=== PATIENT | female | born 1980 ===

== ENCOUNTER 2017-06-27 15:53 | Emergency (ER) | payer OTHER ==
[2017-06-27 16:00] VITALS: TEMP 98
[2017-06-27 16:47] LABS: BASO # 0.1 K/uL (0.0-0.2); BASO % 0.9 % (0.0-2.0); EOS % 0.4 % (0.0-4.0); HEMOGLOBIN 14.1 g/dL (12.0-16.0); LYMPH # 2.5 K/uL (1.0-4.3); LYMPH % 28.6 % (20.0-40.0); MEAN CELL VOLUME 93.3 fl (81.0-99.0); MEAN CORPUSCULAR HEMOGLOBIN 30.6 pg (27.0-31.0); MEAN CORPUSCULAR HGB CONC 32.8 g/dL (33.0-37.0); MEAN PLATELET VOLUME 9.1 fl (7.2-11.7); MONO # 0.7 K/uL (0.0-0.8); MONO % 8.5 % (0.0-10.0); NEUT # 5.4 K/uL (1.8-7.0); NEUT % 61.6 % (50.0-75.0); RBC 4.6 Mil/uL (3.80-5.20); RED CELL DISTRIBUTION WIDTH 13.4 % (11.5-14.5); WHITE BLOOD COUNT 8.8 K/uL (4.8-10.8)
--- NOTE | 2017-06-27 16:47 | ED PDOC ---
HPI: Altered Mental Status Time Seen by Provider: 06/27/17 15:59 Chief Complaint (Nursing): Altered Mental Status Chief Complaint (Provider): Altered Mental Status History Per: Patient, EMS History/Exam Limitations: None Onset/Duration Of Symptoms: Hrs (today) Description Of Symptoms: Confused Usual Baseline: Unknown Exacerbating Factor(s): Unknown Associated Symptoms: Confused, Other (mild abdominal pain) Additional Complaint(s): Jana Brizuela is a 36 year old female, with a past medical history of schizophrenia, heroin and cocaine use, who was brought to the emergency department via EMS after she was found wandering around without her coat and shoes. Patient states that she knows what's going to happen right now because she has a history of schizophrenia. Patient admits to use of cannabis, and adderall. She denies heroin or cocaine use. She is currently complaining of a mild abdominal pain, and states she is 20 weeks and "due today." She denies any other medical complaints. PMD: None provided. Past Medical History Reviewed: Historical Data, Vital Signs Vital Signs: Last Vital Signs Temp 98.0 F 06/27/17 15:56 Pulse 122 H 06/27/17 15:56 Resp 18 06/27/17 15:56 BP 137/107 H 06/27/17 15:56 Pulse Ox 99 06/27/17 15:56 - Medical History PMH: Anxiety, Depression, Schizophrenia - Surgical History Surgical History: No Surg Hx - Family History Family History: States: Unknown Family Hx - Social History Drugs: Cannabis, Prescription medications (adderall) - Allergies Allergies/Adverse Reactions: Allergies Allergy/AdvReac Type Severity Reaction Status Date / Time No Known Allergies Allergy Verified 06/01/15 14:16 Review of Systems ROS Statement: Except As Marked, All Systems Reviewed And Found Negative Gastrointestinal: Positive for: Abdominal Pain (mild) Neurological: Positive for: Altered Mental Status Physical Exam - Reviewed Nursing Documentation Reviewed: Yes Vital Signs Reviewed: Yes - Physical Exam Appears: Positive for: Non-toxic. Negative for: Well (agitated, flight of ideas , paranoid) Head Exam: Positive for: ATRAUMATIC, NORMAL INSPECTION, NORMOCEPHALIC Skin: Positive for: Normal Color, Warm, Dry Eye Exam: Positive for: Normal appearance, EOMI, PERRL Neck: Positive for: Painless ROM, Supple Cardiovascular/Chest: Positive for: Regular Rate, Rhythm. Negative for: Murmur Respiratory: Positive for: Normal Breath Sounds. Negative for: Respiratory Distress Gastrointestinal/Abdominal: Positive for: Normal Exam, Soft, Other (No palpable ). Negative for: Tenderness, Guarding, Rebound Back: Positive for: Normal Inspection. Negative for: L CVA Tenderness, R CVA Tenderness, Vertebral Tenderness Extremity: Positive for: Normal ROM. Negative for: Pedal Edema, Deformity, Swelling Neurologic/Psych: Positive for: Alert - Laboratory Results Result Diagrams: 06/27/17 16:29 - ECG ECG Rhythm: Positive for: Sinus Rhythm (Tachy) Rate: 106 O2 Sat by Pulse Oximetry: 99 (RA) Pulse Ox Interpretation: Normal Medical Decision Making Medical Decision Making: Initial Impression: psychosis and drug use Initial Plan: --EKG --Acetaminophen --Alcohol serum --Beta-HCG, Quantitative --CMP --Drug screen, urine --Salicylate --Urine --CBC w/ differential --Chest one view [RAD] --1:1 Observation --Urinalysis --reevaluation Patient is stable after Ativan. She is currently not as suspected. She is comfortable and waiting Psychiatric disposition. She is medically cleared for psych evaluation. 7pm: Patient signed out to Dr. Jacques to f/u [facility], reevaluate and disposition. Scribe Attestation: Documented by Tone Rodas, acting as a scribe for Regis Devi MD Provider Scribe Attestation: All medical record entries made by the Scribe were at my direction and personally dictated by me. I have reviewed the chart and agree that the record accurately reflects my personal performance of the history, physical exam, medical decision making, and the department course for this patient. I have also personally directed, reviewed, and agree with the discharge instructions and disposition. Disposition - Clinical Impression Clinical Impression: Psychiatric care - Disposition Disposition Time: 19:05 Condition: FAIR Forms: [employer] (Greenlandic)
[2017-06-27 17:28] LABS: SQUAMOUS EPITHIAL 4 /hpf (0-5); URINE BACTERIA RARE (<OCC); URINE BILIRUBIN SMALL (NEGATIVE); URINE BLOOD NEGATIVE (NEGATIVE); URINE CLARITY CLOUDY (Clear); URINE COLOR AMBER (YELLOW); URINE GLUCOSE (UA) NEG (Normal); URINE LEUKOCYTE ESTERASE NEG Leu/uL (Negative); URINE NITRATE NEGATIVE (NEGATIVE); URINE PROTEIN 100 mg/dL (NEGATIVE)
[2017-06-27 17:53] LABS: SALICYLATE < 1.0 mg/dL 1
[2017-06-27 17:54] LABS: ACETAMINOPHEN < 10.0 ug/ml (10.0-30.0)
[2017-06-27 18:28] VITALS: BP 128/80; RESP 20
[2017-06-27 18:50] VITALS: O2SAT 99
[2017-06-27 18:51] VITALS: PULSE 106
[2017-06-27 19:09] LABS: BARBITURATES, UR NEGATIVE (NEGATIVE); BENZODIAZEPINES, UR NEGATIVE (NEGATIVE); OPIATES, UR NEGATIVE (NEGATIVE); PHENCYCLIDINE, UR NEGATIVE (NEGATIVE)
--- NOTE | 2017-06-27 20:08 | ED PDOC ---
- Laboratory Results Result Diagrams: 06/27/17 16:29 - ECG O2 Sat by Pulse Oximetry: 99 (RA) Pulse Ox Interpretation: Normal Medical Decision Making Medical Decision MakinPM Patient was signed out to me by Dr. Devi pending crisis eval. Labs reviewed , all in normal limits. Patient stable, calm, cooperative. 8PM Patient evaluated by crisis and cleared for discharge. Patient will followup as outpatient, given dx of anxiety by Dr. Clay. Disposition - Clinical Impression Clinical Impression: Anxiety - POA Present On Arrival: None - Disposition Referrals: [facility] [Outside] Disposition: Routine/Home Disposition Time: 20:08 Condition: FAIR Instructions: Anxiety (ED) Forms: [employer] (Latvian)
--- NOTE | 2017-06-28 11:21 | CARD ---
APPROVED REPORT EKG Measurement Heart [id number] <Conclusion> Sinus tachycardia Otherwise normal ECG
--- NOTE | 2017-06-28 11:26 | RAD ---
PROCEDURE: CHEST RADIOGRAPH, 1 VIEW HISTORY: psych COMPARISON: None available. FINDINGS: LUNGS: Clear. PLEURA: No pneumothorax or pleural fluid seen. CARDIOVASCULAR: Normal. OSSEOUS STRUCTURES: No significant abnormalities. VISUALIZED UPPER ABDOMEN: Normal. OTHER FINDINGS: None. IMPRESSION: No active disease.
== END 2017-06-27 21:00 | disposition home or self-care (01) ==
LOC: H.ER 15:53
DX: R41.82 Altered mental status, unspecified (principal); F20.9 Schizophrenia, unspecified; F32.9 Major depressive disorder, single episode, unspecified; F41.9 Anxiety disorder, unspecified; F12.10 Cannabis abuse, uncomplicated
CPT/HCPCS: 71045; 80324; 80329; 80345; 80346; 80349; 80353; 80358; 80361; 81003; 81025; 82948; 83992; 84702; 85025; 93005; 96372; 99285; J2060

== ENCOUNTER 2017-06-29 15:15 | Inpatient (IN) | payer OTHER ==
--- NOTE | 2017-06-29 16:37 | ED PDOC ---
HPI: Psych/Substance Abuse Time Seen by Provider: 06/29/17 15:27 Chief Complaint (Nursing): Altered Mental Status Chief Complaint (Provider): Psychiatric evaluation History Per: Patient, Family (Daughter) History/Exam Limitations: no limitations Current Symptoms Are (Timing): Still Present Additional Complaint(s): 36 year old female presents to the emergency department accompanied by ex- and daughter. As per daughter, patient has been acting bizarre over the past 4 days. Daughter found patient dancing in her bedroom naked and screaming at the top of her lungs. States patient has been claiming to be her relative and saying her sugar is low. Denies weakness or loss of consciousness. Patient was seen in this facility 2 days ago with similar complaints and was claiming to be 37 weeks although test was negative. Patient was evaluated by crisis and cleared for discharge. Offers no further complaints at this times, no suicidal or homicidal ideation, and no auditory or visual hallucinations. Of note, patient is asking provider if he believes in god or not. PMD: Dr. Osman Osorio MD Past Medical History Reviewed: Historical Data, Nursing Documentation, Vital Signs Vital Signs: Last Vital Signs Temp 98.0 F 06/29/17 15:20 Pulse 115 H 06/29/17 15:20 Resp 20 06/29/17 15:20 BP 156/92 H 06/29/17 15:20 Pulse Ox 99 06/29/17 15:20 - Medical History PMH: Anxiety, Depression, Schizophrenia - Family History Family History: States: No Known Family Hx - Allergies Allergies/Adverse Reactions: Allergies Allergy/AdvReac Type Severity Reaction Status Date / Time No Known Allergies Allergy Verified 06/01/15 14:16 Review of Systems ROS Statement: Except As Marked, All Systems Reviewed And Found Negative (As per HPI, otherwise negative) Neurological: Negative for: Weakness (loss of consciousness. ) Psych: Negative for: Suicidal ideation (homicidal ideation), Other (Auditory or visual hallucinations) Physical Exam - Reviewed Nursing Documentation Reviewed: Yes Vital Signs Reviewed: Yes - Physical Exam Appears: Positive for: No Acute Distress Head Exam: Positive for: NORMAL INSPECTION Skin: Positive for: Normal Color, Warm, Dry ENT: Positive for: Normal ENT Inspection. Negative for: Pharyngeal Erythema Cardiovascular/Chest: Positive for: Regular Rate, Rhythm. Negative for: Murmur Respiratory: Positive for: Normal Breath Sounds. Negative for: Accessory Muscle Use, Respiratory Distress Gastrointestinal/Abdominal: Positive for: Normal Exam, Soft. Negative for: Tenderness Back: Positive for: Normal Inspection. Negative for: L CVA Tenderness, R CVA Tenderness Extremity: Positive for: Normal ROM. Negative for: Pedal Edema Neurologic/Psych: Positive for: Alert, Oriented (x3), Mood/Affect (hyperverbal but cooperative ) - Laboratory Results Result Diagrams: 06/29/17 18:19 06/29/17 18:19 - ECG ECG: Positive for: Interpreted By Me ECG Rhythm: Positive for: Sinus Rhythm. Negative for: ST/T Changes Rate: 89 O2 Sat by Pulse Oximetry: 99 (RA) Pulse Ox Interpretation: Normal Medical Decision Making Medical Decision Making: Time: 1625 Initial impression: Psychiatric Evaluation Initial plan: --Alcohol Serum --CMP --Drug Screen, urine --Urine Preg --CBC w/ diff --Urinalysis --Crisis Evaluation as ordered --Head CT --Reevaluation Time: 1709 --Positive: Cannabinoids and Amphetamines Time: 1717 --Pt. refusing blood work, CT, and is becoming increasingly combative --Ativan 2 mg IM --Haldol 5 mg IM Time: 1846 --Head CT FINDINGS: Brain: Approximately 14 x 5 x 4 mm moderately high attenuation structure in the left side of the sella and left cavernous sinus (series 8, images 13-14) with no appreciable associated mass effect. No acute intracranial hemorrhage. No abnormal extra-axial fluid collection. No herniation. Patent basal cisterns. Preserved moran-white matter differentiation. No evidence of acute ischemia. Ventricles: No ventriculomegaly. Bones/joints: 2 x 0.6 x 1.7 cm non-expansile lesion in the intradiploic space of the right occipital bone with ground glass matrix (series 7, image 31). Soft tissues: No acute findings. Sinuses: The imaged paranasal sinuses are clear. Mastoid air cells: The mastoid air cells are clear. Orbits: No evident acute abnormality of the intraorbital contents. IMPRESSION: 1. 14 x 5 x 4 mm moderately high attenuation structure in the left side of the sella and left cavernous sinus with no appreciable associated mass effect. Differential diagnosis includes but is not limited to a meningioma, aneurysm, and pituitary neoplasm. This is of no appreciable acute clinical significance. Further evaluation could be obtained with MRI as clinically warranted. 2. No other evident intracranial abnormality. 3. 2 cm lesion in the right occipital bone as described above. Differential diagnosis favors a benign entity (e.g., fibrous dysplasia). Time: 1932 --Pt. and family informed of results. Patient agrees with plan to stay in hospital. She is much more calm and cooperative. --Case d/w Dr. Gold who recommends medical admission for further evaluation of brain lesions. --Case discussed with Dr. Devon RAMIREZ and put on observation. --Request made for Dr. Guo for routine neurology consult. --rn call center psychiatrist ordered. Time: 1933 --Admit to hospital routine: Observation in telemetry for altered mental status and sella turcica lesion under the care of Dr. Osman Osorio MD Scribe Attestation: Documented by Sheri Oh, acting as a scribe for Jose Robles PA-C Provider Scribe Attestation: All medical record entries made by the Scribe were at my direction and personally dictated by me. I have reviewed the chart and agree that the record accurately reflects my personal performance of the history, physical exam, medical decision making, and the department course for this patient. I have also personally directed, reviewed, and agree with the discharge instructions and disposition. Disposition - Clinical Impression Clinical Impression: Altered mental status, Brain lesion - Patient ED Disposition Is Patient to be Admitted: Yes (Observation in Telemetry under the care of Dr. Devon RAMIREZ) - Disposition Disposition: Routine/Home Disposition Time: 19:34 Condition: STABLE
[2017-06-29 17:39] LABS: BARBITURATES, UR NEGATIVE (NEGATIVE); BENZODIAZEPINES, UR NEGATIVE (NEGATIVE); OPIATES, UR NEGATIVE (NEGATIVE); PHENCYCLIDINE, UR NEGATIVE (NEGATIVE)
[2017-06-29 18:37] LABS: BASO % 0.3 % (0.0-2.0); EOS # 0.1 K/uL (0.0-0.7); EOS % 0.5 % (0.0-4.0); HEMOGLOBIN 12.7 g/dL (12.0-16.0); LYMPH # 3.2 K/uL (1.0-4.3); LYMPH % 33.4 % (20.0-40.0); MEAN CELL VOLUME 91.8 fl (81.0-99.0); MEAN CORPUSCULAR HEMOGLOBIN 30.6 pg (27.0-31.0); MEAN CORPUSCULAR HGB CONC 33.4 g/dL (33.0-37.0); MEAN PLATELET VOLUME 9.5 fl (7.2-11.7); MONO # 0.8 K/uL (0.0-0.8); MONO % 8.2 % (0.0-10.0); NEUT # 5.5 K/uL (1.8-7.0); NEUT % 57.6 % (50.0-75.0); RBC 4.15 Mil/uL (3.80-5.20); RED CELL DISTRIBUTION WIDTH 13.2 % (11.5-14.5); WHITE BLOOD COUNT 9.6 K/uL (4.8-10.8)
[2017-06-29 19:00] LABS: ALB/GLOB RATIO 1.3 (1.0-2.1); ALBUMIN 4.1 g/dL (3.5-5.0); ALT/SGPT 29 U/L (9-52); AST/SGOT 28 U/L (14-36); BLOOD UREA NITROGEN 7 mg/dl (7-17); CALCIUM 9.6 mg/dL (8.4-10.2); GFR AFRICAN-AMERICAN > 60; GFR NON-AFRICAN AMERICAN > 60
--- NOTE | 2017-06-29 23:59 | CP.PCM.HP ---
History of Present Illness - History of Present Illness History of Present Illness: This is a 36 y/o female admitted for increasing bizzarre behavior noticed by family ( daughter). She was noted bu daughter to be screaming in the bedroom and dancing naked. She was recently brought to ER as she was claiming that she was full term . She also had references to [place]/ belief in God. She had never had any occurrence of this bizarre behavior in the past. She denies any headaches or dizziness. She takes meds for ADHD, Initial exam showed 1.2 cm left cellar mass? and right occipital changes 2.0 cm Noted to be positive for cannabinoids Present on Admission - Present on Admission Any Indicators Present on Admission: No History of DVT/PE: No History of Uncontrolled Diabetes: No Urinary Catheter: No Decubitus Ulcer Present: No Review of Systems - Psychiatric Psychiatric: Behavioral Changes, Confusion Past Patient History - Past Social History Smoking Status: Heavy Smoker > 10 Cigarettes Daily - PSYCHIATRIC Hx Anxiety: Yes Hx Depression: Yes Hx Schizophrenia: Yes - SURGICAL HISTORY Hx Tubal Ligation: Yes - ANESTHESIA Hx Anesthesia: Yes Meds Allergies/Adverse Reactions: Allergies Allergy/AdvReac Type Severity Reaction Status Date / Time No Known Allergies Allergy Verified 06/01/15 14:16 Physical Exam - Head Exam Head Exam: NORMAL INSPECTION - Eye Exam Eye Exam: Normal appearance - ENT Exam ENT Exam: Mucous Membranes Moist - Respiratory Exam Respiratory Exam: Clear to Auscultation Bilateral - Cardiovascular Exam Cardiovascular Exam: REGULAR RHYTHM - GI/Abdominal Exam GI & Abdominal Exam: Normal Bowel Sounds - Neurological Exam Neurological exam: CN II-XII Intact, Oriented x3 - Psychiatric Exam Additional comments: recent episode of bizarre behavior but on exams she has no abnormal behavior. Results - Vital Signs Recent Vital Signs: Last Vital Signs Temp 98.4 F 06/29/17 22:30 Pulse 89 06/29/17 23:26 Resp 15 06/29/17 22:30 BP 113/75 06/29/17 22:30 Pulse Ox 99 06/29/17 23:26 - Labs Result Diagrams: 07/01/17 05:55 07/02/17 04:20 Labs: Laboratory Results - last 24 hr 06/29/17 06/29/17 06/29/17 16:57 17:10 18:19 WBC RBC Hgb Hct MCV MCH MCHC RDW Plt Count MPV Neut % (Auto) Lymph % (Auto) [place] % (Auto) Eos % (Auto) Baso % (Auto) Neut # (Auto) Lymph # (Auto) [place] # (Auto) Eos # (Auto) Baso # (Auto) Sodium 142 Potassium 3.4 L Chloride 105 Carbon Dioxide 24 Anion Gap 16 BUN 7 Creatinine 0.6 L Est GFR ( Amer) > 60 Est GFR (Non-Af Amer) > 60 POC Glucose (mg/dL) 75 Random Glucose 89 Calcium 9.6 Total Bilirubin 0.4 AST 28 ALT 29 Alkaline Phosphatase 87 Total Protein 7.2 Albumin 4.1 Globulin 3.1 Albumin/Globulin Ratio 1.3 Urine Opiates Screen Negative Urine Methadone Screen Negative Ur Barbiturates Screen Negative Ur Phencyclidine Scrn Negative Ur Amphetamines Screen Positive H U Benzodiazepines Scrn Negative U Oth Cocaine Metabols Negative U Cannabinoids Screen Positive H Alcohol, Quantitative < 10 06/29/17 18:19 WBC 9.6 RBC 4.15 Hgb 12.7 Hct 38.1 MCV 91.8 MCH 30.6 MCHC 33.4 RDW 13.2 Plt Count 208 MPV 9.5 Neut % (Auto) 57.6 Lymph % (Auto) 33.4 [place] % (Auto) 8.2 Eos % (Auto) 0.5 Baso % (Auto) 0.3 Neut # (Auto) 5.5 Lymph # (Auto) 3.2 [place] # (Auto) 0.8 Eos # (Auto) 0.1 Baso # (Auto) 0.0 Sodium Potassium Chloride Carbon Dioxide Anion Gap BUN Creatinine Est GFR ( Amer) Est GFR (Non-Af Amer) POC Glucose (mg/dL) Random Glucose Calcium Total Bilirubin AST ALT Alkaline Phosphatase Total Protein Albumin Globulin Albumin/Globulin Ratio Urine Opiates Screen Urine Methadone Screen Ur Barbiturates Screen Ur Phencyclidine Scrn Ur Amphetamines Screen U Benzodiazepines Scrn U Oth Cocaine Metabols U Cannabinoids Screen Alcohol, Quantitative Assessment & Plan (1) Acute psychosis Status: Acute (2) Brain lesion Status: Acute (3) Attention deficit disorder (ADD) Status: Acute (4) Anxiety Status: Acute - Assessment and Plan (Free Text) Plan: get MRI of the brain Neuro eval Psych eval cont meds ativan for anxiety
--- NOTE | 2017-06-30 08:34 | CT ---
PROCEDURE: CT HEAD WITHOUT CONTRAST. HISTORY: AMS COMPARISON: None available. TECHNIQUE: Axial computed tomography images were obtained through the head/brain without intravenous contrast. Radiation dose: Total exam DLP = 2448.5 mGy-cm. This CT exam was performed using one or more of the following dose reduction techniques: Automated exposure control, adjustment of the mA and/or kV according to patient size, and/or use of iterative reconstruction technique. FINDINGS: HEMORRHAGE: No intracranial hemorrhage. BRAIN: 1.4 x 0.5 x 0.4 cm high attenuation structure in the left sella region. No edema. No atrophy or chronic microvascular ischemic changes. VENTRICLES: Unremarkable. No hydrocephalus. CALVARIUM: 2.6 x 0.6 x 1.7 cm non expansile structure within the diploic space of the right occipital bone with ground-glass matrix (series 7, image 31). PARANASAL SINUSES: Unremarkable as visualized. No significant inflammatory changes. MASTOID AIR CELLS: Unremarkable as visualized. No inflammatory changes. OTHER FINDINGS: None. IMPRESSION: Nonspecific 1.4 cm structure in the left sella region. Contrast-enhanced MRI can be obtained for further evaluation as clinically warranted. Nonspecific right occipital calvarial 2.0 centimeter ground-glass structure, possibly representing a focus of fibrous dysplasia.
--- NOTE | 2017-06-30 08:46 | RAD ---
HISTORY: clearance COMPARISON: Chest radiograph dated 06/27/2017. FINDINGS: LUNGS: No active pulmonary disease. PLEURA: No significant pleural effusion identified, no pneumothorax apparent. CARDIOVASCULAR: Normal. OSSEOUS STRUCTURES: No significant abnormalities. VISUALIZED UPPER ABDOMEN: Normal. OTHER FINDINGS: None. IMPRESSION: No active disease.
[2017-06-30 10:13] LABS: URINE BILIRUBIN NEGATIVE (NEGATIVE); URINE BLOOD SMALL (NEGATIVE); URINE CLARITY CLEAR (Clear); URINE COLOR YELLOW (YELLOW); URINE GLUCOSE (UA) NEG (Normal); URINE LEUKOCYTE ESTERASE NEG Leu/uL (Negative); URINE NITRATE NEGATIVE (NEGATIVE); URINE PROTEIN NEGATIVE (NEGATIVE); URINE UROBILINOGEN 0.2-1.0 mg/dL (0.2-1.0)
[2017-06-30 10:16] LABS: URINE BACTERIA FEW (<OCC)
--- NOTE | 2017-06-30 11:16 | CARD ---
APPROVED REPORT EKG Measurement Heart [id number] <Conclusion> Normal sinus rhythm Normal ECG
--- NOTE | 2017-06-30 13:22 | CP.PCM.CON ---
History of Present Illness - History of Present Illness History of Present Illness: This is a 36 yr old female with no known past psychiatric history admitted because of change in mental status as family brought pt because of bizarre behaviors for past 4 days,dancing naked in her room and screaming and claiming to be a relative .pt was brought in to ER 2 days ago claimimg to be but test was negative and was d/c home.pt has had cT scan done showing a brain mass which could be meningioma as per attending physician report and pt is admitted to medicine for further neurological evaluation. 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 illness and pt believes it is the brain mass causing the symptoms and pt denies any hallucinations,does not talk about being and understands she was having psychotic symptoms and has good insight about it Past Patient History - Past Medical History & Family History Past Medical History?: Yes - Past Social History Smoking Status: Heavy Smoker > 10 Cigarettes Daily - CARDIAC Hx Cardiac Disorders: No - PULMONARY Hx Respiratory Disorders: No - NEUROLOGICAL Hx Neurological Disorder: No - HEENT Hx HEENT Problems: No - RENAL Hx Chronic Kidney Disease: No - ENDOCRINE/METABOLIC Hx Endocrine Disorders: No - HEMATOLOGICAL/ONCOLOGICAL Hx Blood Disorders: No Hx AIDS: No Hx Human Immunodeficiency Virus (HIV): No - INTEGUMENTARY Hx Dermatological Problems: No - MUSCULOSKELETAL/RHEUMATOLOGICAL Hx Musculoskeletal Disorders: No Hx Falls: No - GASTROINTESTINAL Hx Gastrointestinal Disorders: No - GENITOURINARY/GYNECOLOGICAL Hx Genitourinary Disorders: No - PSYCHIATRIC Hx Anxiety: Yes Hx Depression: Yes Hx Schizophrenia: Yes - SURGICAL HISTORY Hx Tubal Ligation: Yes - ANESTHESIA Hx Anesthesia: Yes Meds Allergies/Adverse Reactions: Allergies Allergy/AdvReac Type Severity Reaction Status Date / Time No Known Allergies Allergy Verified 06/01/15 14:16 - Medications Medications: Current Medications Nicotine (Nicoderm Cq) 1 patch TD DAILY HORACIO Last Admin: 06/30/17 11:11 Dose: 1 patch Physical Exam - Psychiatric Exam Psychiatric exam: Normal Affect, Normal Mood Additional comments: pt is alert ,orientedx3 with intact memory and fair concentration.pt denies Hallucinations.no delusions and denies talking about being a person.pt is worried about brain mass but denies suicidal ideation.pt has fair insight into her psychotic symptoms. Results - Vital Signs Recent Vital Signs: Last Vital Signs Temp 98.2 F 06/30/17 12:21 Pulse 96 H 06/30/17 12:21 Resp 20 06/30/17 12:21 BP 128/78 06/30/17 12:21 Pulse Ox 100 06/30/17 12:21 - Labs Result Diagrams: 06/29/17 18:19 06/29/17 18:19 Labs: Laboratory Results - last 24 hr 06/29/17 06/29/17 06/29/17 08:50 16:57 17:10 WBC RBC Hgb Hct MCV MCH MCHC RDW Plt Count MPV Neut % (Auto) Lymph % (Auto) [place] % (Auto) Eos % (Auto) Baso % (Auto) Neut # (Auto) Lymph # (Auto) [place] # (Auto) Eos # (Auto) Baso # (Auto) Sodium Potassium Chloride Carbon Dioxide Anion Gap BUN Creatinine Est GFR ( Amer) Est GFR (Non-Af Amer) POC Glucose (mg/dL) 75 Random Glucose Calcium Total Bilirubin AST ALT Alkaline Phosphatase Total Protein Albumin Globulin Albumin/Globulin Ratio TSH 3rd Generation Urine Color Yellow Urine Clarity Clear Urine pH 6.0 Ur Specific [place] 1.005 Urine Protein Negative Urine Glucose (UA) Neg Urine Ketones Negative Urine Blood Small Urine Nitrate Negative Urine Bilirubin Negative Urine Urobilinogen 0.2-1.0 Ur Leukocyte Esterase Neg Urine RBC (Auto) 8 H Urine Microscopic WBC < 1 Urine Bacteria Few H Urine Opiates Screen Negative Urine Methadone Screen Negative Ur Barbiturates Screen Negative Ur Phencyclidine Scrn Negative Ur Amphetamines Screen Positive H U Benzodiazepines Scrn Negative U Oth Cocaine Metabols Negative U Cannabinoids Screen Positive H Alcohol, Quantitative 06/29/17 06/29/17 06/30/17 18:19 18:19 08:25 WBC 9.6 RBC 4.15 Hgb 12.7 Hct 38.1 MCV 91.8 MCH 30.6 MCHC 33.4 RDW 13.2 Plt Count 208 MPV 9.5 Neut % (Auto) 57.6 Lymph % (Auto) 33.4 [place] % (Auto) 8.2 Eos % (Auto) 0.5 Baso % (Auto) 0.3 Neut # (Auto) 5.5 Lymph # (Auto) 3.2 [place] # (Auto) 0.8 Eos # (Auto) 0.1 Baso # (Auto) 0.0 Sodium 142 Potassium 3.4 L Chloride 105 Carbon Dioxide 24 Anion Gap 16 BUN 7 Creatinine 0.6 L Est GFR ( Amer) > 60 Est GFR (Non-Af Amer) > 60 POC Glucose (mg/dL) Random Glucose 89 Calcium 9.6 Total Bilirubin 0.4 AST 28 ALT 29 Alkaline Phosphatase 87 Total Protein 7.2 Albumin 4.1 Globulin 3.1 Albumin/Globulin Ratio 1.3 TSH 3rd Generation 1.10 Urine Color Urine Clarity Urine pH Ur Specific [place] Urine Protein Urine Glucose (UA) Urine Ketones Urine Blood Urine Nitrate Urine Bilirubin Urine Urobilinogen Ur Leukocyte Esterase Urine RBC (Auto) Urine Microscopic WBC Urine Bacteria Urine Opiates Screen Urine Methadone Screen Ur Barbiturates Screen Ur Phencyclidine Scrn Ur Amphetamines Screen U Benzodiazepines Scrn U Oth Cocaine Metabols U Cannabinoids Screen Alcohol, Quantitative < 10 Assessment & Plan - Assessment and Plan (Free Text) Assessment: A/P : psychotic disorder not specified r/o organic mood syndrome due to brain mass Plan: Continue 1:1 observation Ativan 1 mg q 8hr prn severe agotation and Haldol 2 mg q 8hr prn severe psychotic agitation. 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 neurological follow up and may need further med evaluation with MRI and EEG.
[2017-07-01 06:16] LABS: BASO % 0.6 % (0.0-2.0); EOS # 0.1 K/uL (0.0-0.7); EOS % 1.3 % (0.0-4.0); HEMOGLOBIN 13.7 g/dL (12.0-16.0); LYMPH # 3.1 K/uL (1.0-4.3); LYMPH % 40.1 % (20.0-40.0); MEAN CELL VOLUME 91.8 fl (81.0-99.0); MEAN CORPUSCULAR HEMOGLOBIN 30.9 pg (27.0-31.0); MEAN CORPUSCULAR HGB CONC 33.6 g/dL (33.0-37.0); MEAN PLATELET VOLUME 9.3 fl (7.2-11.7); MONO # 0.7 K/uL (0.0-0.8); MONO % 9.3 % (0.0-10.0); NEUT # 3.8 K/uL (1.8-7.0); NEUT % 48.7 % (50.0-75.0); NRBC % 0.1 % (0.0-0.0); RBC 4.45 Mil/uL (3.80-5.20); RED CELL DISTRIBUTION WIDTH 13.1 % (11.5-14.5); WHITE BLOOD COUNT 7.8 K/uL (4.8-10.8)
[2017-07-01 06:32] LABS: BLOOD UREA NITROGEN 14 mg/dl (7-17); GFR AFRICAN-AMERICAN > 60; GFR NON-AFRICAN AMERICAN > 60
[2017-07-01 06:33] LABS: ALB/GLOB RATIO 1.3 (1.0-2.1); ALBUMIN 4.1 g/dL (3.5-5.0); ALT/SGPT 38 U/L (9-52); AST/SGOT 23 U/L (14-36); CALCIUM 9.2 mg/dL (8.4-10.2)
[2017-07-01 06:43] LABS: T4 10.4 ug/dl (5.5-11.0)
[2017-07-01 06:56] LABS: T3 1.28 nmol/L (1.49-2.60)
--- NOTE | 2017-07-01 07:21 | CON ---
DATE: 06/30/2017 HISTORY OF PRESENT ILLNESS: A 36-year-old woman with history of ADHD, anxiety, depression, schizophrenia on Adderall daily. All the sudden have been acting very bizarre in terms of behavior over the past few days, found her in her bedroom naked, screaming on top of her lungs and she has been tell me that she has seen her relatives. Her blood sugar was low. She denies any focal weakness, loss of conscious. CT of the head incidentally showed 1.4 cm mass in left cerebellar lesion, most likely representing an meningioma versus pituitary adenoma. We will get an MRI of the brain with contrast to assess further and will get Neurosurgery consult for an evaluation though this is an incidental finding, has nothing consisting in her acute episode of psychosis. Follow up with the Psychiatry. PAST MEDICAL HISTORY: History of depression, anxiety, and schizophrenia. FAMILY HISTORY: Not contributory. SOCIAL HISTORY: No illicit drug use, smoking or EtOH abuse. REVIEW OF SYSTEMS: A 14-point review of system is negative except for HPI. MEDICATIONS: Reviewed by nurse practitioner reconciliation sheet. ALLERGIES: NO KNOWN DRUG ALLERGIES. LABORATORY DATA: U-tox is positive for amphetamine and cannabinoids. Sodium is 142, potassium 3.4, chloride of 105, carbon dioxide 24, BUN of 7, creatinine 0.6, and random glucose 75. PHYSICAL EXAMINATION GENERAL: The patient was seen up in bed in no acute distress. HEENT: Head is atraumatic and normocephalic. PERRLA. Extraocular muscles intact. NECK: Supple. No JVD. No adenopathy noted. LUNGS: Clear to auscultation. No adventitious breath sounds. HEART: S1 and S2. Normal rate and rhythm. No murmurs, rubs or gallops. ABDOMEN: Soft, nontender, nondistended. Bowel sounds presents. EXTREMITIES: No clubbing, no cyanosis. Peripheral pulses 2+ bilaterally. NEUROLOGIC: The patient is alert and oriented to person, place, month, and year. Speech is fluent without any errors. Cranial nerves II through XII intact. Motor exam, moves all extremities equally. No pronator seen. Strength is 5/5 in both upper and lower extremities. Sensory exam, light touch, pinprick, proprioception and vibration intact. DTRs 2+ bilaterally. Coordination and gait were deferred. ASSESSMENT AND PLAN: This is a 36-year-old woman with history of schizophrenia, anxiety, depression on Adderall, came with the positive urine toxicology of amphetamine as well as cannabinoids, had an acute onset of acting bizarre in terms of bedroom and screaming on top of her lungs and seeing her relatives. Symptoms likely to see secondary to acute psychosis and incidentally, on a CAT scan was found to have 1.4 cm left cerebellar mass seems most likely an adenoma/meningioma. We will get an MRI of the brain with contrast to assess the structure fully and get a Neurosurgery consult just for an evaluation. The incidental mass does not correspond to her acute psychosis. Continue with psychiatric follow up. Thank you for this consult. Gurdeep Guo MD
[2017-07-01] MEDS ORDERED: Gadodiamide 287 MG/ML VIAL (15ML) IV ONE (09:08)
--- NOTE | 2017-07-01 10:29 | CP.PCM.PN ---
Subjective - Date & Time of Evaluation Date of Evaluation: 07/01/17 Time of Evaluation: 10:27 - Subjective Subjective: revieweed CT amd MRi possible microadenoma in piti\uitary await official report would need full endocrine w/u at this point this is not surgical emergency Psychological changes not related to this Pitutary surgery if necessary could not be done at [facility] anyway and resolution of psych issues are paramount Will follow up on official MRi report Objective - Vital Signs/Intake and Output Vital Signs (last 24 hours): Temp Pulse Resp BP Pulse Ox 97.8 F 87 18 105/69 99 07/01/17 08:00 07/01/17 08:00 07/01/17 08:00 07/01/17 08:00 07/01/17 08:00 - Medications Medications: Current Medications Haloperidol (Haldol) 2 mg PO TID PRN PRN Reason: Agitation Lorazepam (Ativan) 1 mg IVP BID PRN PRN Reason: Anxiety Last Admin: 07/01/17 03:20 Dose: 1 mg Nicotine (Nicoderm Cq) 1 patch TD DAILY HORACIO Last Admin: 06/30/17 11:11 Dose: 1 patch - Labs Labs: 07/01/17 05:55 07/01/17 05:55
--- NOTE | 2017-07-01 11:28 | MRI ---
PROCEDURE: MRI of the brain 06/29/2017. HISTORY: Brain lesion COMPARISON: Comparison made with CT scan brain dated 06/29/2017. TECHNIQUE: Multiplanar, multisequence MR images of the brain were obtained with and without intravenous contrast enhancement. 7 CC Omniscan injected for this examination FINDINGS: HEMORRHAGE: No acute parenchymal, subarachnoid or extra-axial hemorrhage. No evidence of hemosiderin deposition seen on gradient echo weighted sequence. DWI: No evidence of an acute or early subacute infarction. BRAIN PARENCHYMA: No mass,mass effect or edema. No atrophy or chronic microvascular ischemic changes. ENHANCEMENT: No abnormal intracranial enhancement. VENTRICLES: Unremarkable. No hydrocephalus. CRANIUM: Previously noted elliptical shaped 2 cm ground-glass focus within the right occipital diploic space at is not well delineated on this exam . This could represent fibrous dysplasia but does not exhibit discernible contrast enhancement based on CT scan appearance. Follow-up CT scan in 3- 6 month interval could be performed to assess stability. ORBITS: Orbits and contents grossly unremarkable. PARANASAL SINUSES/MASTOIDS: Partial opacification several left-sided inferior mastoid air cells. VASCULAR SYSTEM: Visualized major vascular flow voids at skull base patent. OTHER FINDINGS: There are no enhancing intrasellar or suprasellar lesions. Pituitary gland and pituitary infundibulum appear unremarkable. Optic chiasm unremarkable as well. IMPRESSION: No evidence of acute intracranial hemorrhage or infarct. No obvious enhancing masses or collections. 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 This focus does not exhibit discernible contrast enhancement. . Follow-up CT scan in 3- 6 month interval could be performed to assess stability Partial opacification several left inferior mastoid air cells
--- NOTE | 2017-07-01 16:04 | PN ---
DATE: 07/01/2017 NEUROLOGY FOLLOWUP CHIEF COMPLAINT: Followup for acute onset psychosis. SUBJECTIVE: The patient was seen and examined at bedside, resting in bed, was given Ativan because she was quite restless. MRI of the brain showed no acute intracranial abnormality. No obvious enhancing masses or collection, just some mild fibrous dysplasia. We would recommend Endocrinology follow up as an outpatient and continue with psychiatric management in regards to her brief psychotic episode. No acute events overnight. PAST MEDICAL HISTORY: Depression, anxiety, schizophrenia. FAMILY HISTORY: Noncontributory. SOCIAL HISTORY: No illicit drug use, smoking or EtOH abuse. REVIEW OF SYSTEMS: A 14-point review of systems is negative except in the HPI. MEDICATIONS: Reviewed by nurse per reconciliation sheet. ALLERGIES: NO KNOWN DRUG ALLERGIES. PHYSICAL EXAMINATION: VITAL SIGNS: Temperature 97.8, pulse rate 87, blood pressure 105/69, respiratory rate 18, oxygen saturation 99% by room air. GENERAL: The patient is seen up in bed, resting, in no acute distress. HEENT: Head is atraumatic and normocephalic. PERRLA. Extraocular muscles intact. NECK: Supple. No JVD. No adenopathy noted. LUNGS: Clear to auscultation. No adventitious sounds. HEART: S1 and S2, normal rate and rhythm. No murmurs, rubs, or gallops. ABDOMEN: Soft, nontender, and nondistended. Bowel sounds are present. EXTREMITIES: No clubbing. No cyanosis. Peripheral pulses 2+ bilaterally. NEUROLOGIC: The patient is alert and oriented to person, place, month, and year. Speech is fluent without any errors. Cranial nerves II through XII are intact. Motor exam: Moves all extremities equally. Toes are downgoing bilaterally. Sensory exam: Light touch pinprick, proprioception, and vibration are intact. DTRs are 2+ throughout. Coordination, [id number] intact. Gait deferred for now. LABORATORY DATA: Sodium is 140, potassium 4.1, chloride 105, carbon dioxide 27, BUN of 14, creatinine 0.7, random glucose of 97. ASSESSMENT AND PLAN: This is a 36-year-old woman with history of schizophrenia, anxiety, depression, on Adderall, came in with the positive urine toxicology of amphetamine as well as cannabinoids, had an acute onset of acting bizarre in terms of jumping in her bedroom and screaming on top of her lungs naked and was seeing relatives. Her symptoms are secondary to underlying acute psychosis. Incidentally, there was a 1.4 cm left sellar mass seen on a CAT scan, but was not seen on the MRI of the brain. 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 At this time, she has acute psychosis, which is currently stabilized. She is resting well restlessness. We will recommend for Endocrinology and followup as an outpatient and recommend to follow up with Psychiatry. Thank you for this followup. Gurdeep Guo MD
[2017-07-01 17:31] LABS: PROLACTIN 46.9 ng/mL (3.0-18.9)
[2017-07-02 05:25] VITALS: RESP 18
[2017-07-02 06:18] LABS: ALB/GLOB RATIO 1.3 (1.0-2.1); ALBUMIN 4.1 g/dL (3.5-5.0); ALT/SGPT 35 U/L (9-52); AST/SGOT 23 U/L (14-36); BLOOD UREA NITROGEN 8 mg/dl (7-17); CALCIUM 9.3 mg/dL (8.4-10.2); GFR AFRICAN-AMERICAN > 60; GFR NON-AFRICAN AMERICAN > 60
[2017-07-02 06:25] LABS: FSH 3.3 mIU/mL
--- NOTE | 2017-07-02 08:37 | CON ---
DATE: ENDOCRINOLOGY CONSULTATION LOCATION: Room 410. HISTORY OF PRESENT ILLNESS: This is a 36-year-old female with significant history of ADHD, currently on Adderall medications presented here with agitation and behavioral disturbances and is now being referred for endocrine evaluation because of an abnormal CAT scan findings of a left cerebellar mass lesion as noted thereof. PAST MEDICAL HISTORY: As mentioned above, history of generalized anxiety and depression with underlying chronic schizo-affective disorder and schizophrenia. Apparent also recent history of ADHD, currently on Adderall medications. FAMILY HISTORY: Positive for hypertension and heart disease. No known endocrinopathy noted. SOCIAL HISTORY: The patient admitted to have nicotine dependence and has supportive family, otherwise this hospital. REVIEW OF SYSTEMS: As mentioned above, admitted with generalized body weakness with easy fatigability and tiredness and suboptimal energy level. Also admits to marked insomnia with restlessness and agitation, worse in the last few days prior to admission. No chest pains or palpitations or PND. Her oral intake is variable, vague upper abdominal pain, associated nausea and dyspepsia. PHYSICAL EXAMINATION GENERAL: This is an average built female in no apparent distress. VITAL SIGNS: Blood pressure of 140/80, pulse of 106 beats per minute and regular, temperature of 98, and respirations of 20. Height is 5 feet 2 inches and weight is 160 pounds. HEENT: Head is normocephalic. Eyes are anicteric with pink conjunctivae. Funduscopy at this time. Ears, nose, and throat otherwise normal. NECK: Supple. Thyroid gland is normal in size. No carotid bruits or any cervical adenopathy. CARDIOPULMONARY: Some adynamic precordium. S1 and S2 are rapid and regular. LUNGS: Clear to auscultation. ABDOMEN: Flat and soft with positive bowel sounds. EXTREMITIES: Right extremity pulses are +2 bilaterally. DIAGNOSTIC DATA: Her CAT scan of the brain showed 1.4 cm cerebellar mass and the MRI of the brain with and without contrast showed a normal pituitary gland area with no overt adenoma as noted. Also the initial finding showed possibility of 1.2 cm intracellular mass most likely pituitary adenoma, but the final report did not mention any of the above mentioned as noted. LABORATORY DATA: Her chemistries showed BUN of 14, sodium of 140, potassium of 4.1, chloride of 105, CO2 of 27, glucose of 97 and creatinine of 0.7. Her total T4 is 10.4 with a TSH of 0.65 and serum cortisol of 9.6. Her prolactin level is pending at this time. ASSESSMENT AND PLAN: This is a 36-year-old female with recent behavioral disturbances and agitation with underlying attention deficit hyperactivity disorder and concomitant chronic schizoaffective disorder with schizophrenia, now being referred for endocrine evaluation and management. Further management will obtain a comprehensive hormonal profile with prolactin level and serum cortisol and ACTH level with growth hormone values will be obtained tomorrow morning. We will add luteinizing and follicle stimulating hormone as ordered. We will obtain serum chemistries and supplement accordingly as needed. We will also check comprehensive hormonal profile as ordered for tomorrow morning. No indication at this time for any kind of surgical intervention as well. We will obtain serial chemistries and supplement accordingly as needed. We will follow with you. Anjana Arellano MD
[2017-07-02 08:46] VITALS: BP 107/76; PULSE 87; TEMP 98.1; O2SAT 100
--- NOTE | 2017-07-02 11:26 | CP.PCM.PN ---
Subjective - Date & Time of Evaluation Date of Evaluation: 06/30/17 Time of Evaluation: 17:00 - Subjective Subjective: patient is stable Very anxious about her condition Has no headaches Has no chest pain No recurrence of bizarre behavior No auditory hallucinations Objective - Vital Signs/Intake and Output Vital Signs (last 24 hours): Temp Pulse Resp BP Pulse Ox 98.1 F 87 18 107/76 100 07/02/17 08:46 07/02/17 08:46 07/02/17 08:46 07/02/17 08:46 07/02/17 08:46 - Medications Medications: Current Medications Haloperidol (Haldol) 2 mg PO TID PRN PRN Reason: Agitation Last Admin: 07/02/17 02:14 Dose: 2 mg Lorazepam (Ativan) 1 mg IVP Q8 PRN PRN Reason: Agitation Last Admin: 07/02/17 07:04 Dose: 1 mg Nicotine (Nicoderm Cq) 1 patch TD DAILY HORACIO Last Admin: 07/02/17 08:56 Dose: 1 patch - Labs Labs: 07/01/17 05:55 07/02/17 04:20 - Head Exam Head Exam: NORMAL INSPECTION - Eye Exam Eye Exam: Normal appearance - ENT Exam ENT Exam: Mucous Membranes Moist - Respiratory Exam Respiratory Exam: Clear to Ausculation Bilateral - Cardiovascular Exam Cardiovascular Exam: REGULAR RHYTHM - GI/Abdominal Exam GI & Abdominal Exam: Normal Bowel Sounds - Neurological Exam Neurological Exam: Alert, Awake, Oriented x3 - Psychiatric Exam Psychiatric exam: Anxious Assessment and Plan (1) Acute psychosis Status: Acute (2) Brain lesion Status: Acute (3) Attention deficit disorder (ADD) Status: Acute (4) Anxiety Status: Acute - Assessment and Plan (Free Text) Plan: Cont meds Follow up with Neuro and Psych cont meds
--- NOTE | 2017-07-02 11:28 | CP.PCM.PN ---
Subjective - Date & Time of Evaluation Date of Evaluation: 07/01/17 Time of Evaluation: 10:30 - Subjective Subjective: Patient is stable Has no chest pain Has no SOB Has no auditory hallucination No bizarre behavior Objective - Vital Signs/Intake and Output Vital Signs (last 24 hours): Temp Pulse Resp BP Pulse Ox 98.1 F 87 18 107/76 100 07/02/17 08:46 07/02/17 08:46 07/02/17 08:46 07/02/17 08:46 07/02/17 08:46 - Medications Medications: Current Medications Haloperidol (Haldol) 2 mg PO TID PRN PRN Reason: Agitation Last Admin: 07/02/17 02:14 Dose: 2 mg Lorazepam (Ativan) 1 mg IVP Q8 PRN PRN Reason: Agitation Last Admin: 07/02/17 07:04 Dose: 1 mg Nicotine (Nicoderm Cq) 1 patch TD DAILY HORACIO Last Admin: 07/02/17 08:56 Dose: 1 patch - Labs Labs: 07/01/17 05:55 07/02/17 04:20 - Head Exam Head Exam: NORMAL INSPECTION - Eye Exam Eye Exam: Normal appearance - ENT Exam ENT Exam: Mucous Membranes Moist - Respiratory Exam Respiratory Exam: Clear to Ausculation Bilateral - Cardiovascular Exam Cardiovascular Exam: REGULAR RHYTHM - GI/Abdominal Exam GI & Abdominal Exam: Normal Bowel Sounds Assessment and Plan (1) Acute psychosis Status: Acute (2) Brain lesion Status: Acute (3) Attention deficit disorder (ADD) Status: Acute (4) Anxiety Status: Acute (5) Hyperprolactinemia Status: Acute - Assessment and Plan (Free Text) Plan: Cont meds Cont tx Cont meds follow up MRI of the brain
--- NOTE | 2017-07-02 12:17 | CP.PCM.CON ---
History of Present Illness - History of Present Illness History of Present Illness: Psychiatry follow-up note CC: "I was talking crazy before." HPI: 36 yo female initially presented w/ bizarre behaviors, hallucinations and delusions, found to have a lesion on CT/MRI, no acute intervention indicated. Patient has good insight now that her previous behavior was bizarre and psychotic. She denies current AH/VH/SI/HI. She has linear speech and is not internally preoccupied. She is not interested in antipsychotic treatment at this time as her psychotic symptoms have resolved. Psychoeducation provided on psychotic symptoms and the importance of seeking immediately treatment if they reoccur. PPHx: Denies past psychiatric history FHx: Denies family history of mental illness MSE: A + O x 3, calm, cooperative, no acute distress, speech normal/linear/ organized; mood/affect- neutral/broad; no AH/VH; no paranoia/delusions; good I/J ; good impulse control; no SI/HI. Impression: 36 yo female who presented w/ an acute psychotic episode of unclear etiology, now resolved. -No acute inpatient psychiatric admission indicated at this time; no acute medications needed at this time -Patient should follow-up w/ outpatient psychiatry -No 1:1 indicated at this time Past Patient History - Past Medical History & Family History Past Medical History?: Yes - Past Social History Smoking Status: Heavy Smoker > 10 Cigarettes Daily - CARDIAC Hx Cardiac Disorders: No - PULMONARY Hx Respiratory Disorders: No - NEUROLOGICAL Hx Neurological Disorder: No - HEENT Hx HEENT Problems: No - RENAL Hx Chronic Kidney Disease: No - ENDOCRINE/METABOLIC Hx Endocrine Disorders: No - HEMATOLOGICAL/ONCOLOGICAL Hx Blood Disorders: No Hx AIDS: No Hx Human Immunodeficiency Virus (HIV): No - INTEGUMENTARY Hx Dermatological Problems: No - MUSCULOSKELETAL/RHEUMATOLOGICAL Hx Musculoskeletal Disorders: No Hx Falls: No - GASTROINTESTINAL Hx Gastrointestinal Disorders: No - GENITOURINARY/GYNECOLOGICAL Hx Genitourinary Disorders: No - PSYCHIATRIC Hx Anxiety: Yes Hx Depression: Yes Hx Schizophrenia: Yes - SURGICAL HISTORY Hx Tubal Ligation: Yes - ANESTHESIA Hx Anesthesia: Yes Meds Allergies/Adverse Reactions: Allergies Allergy/AdvReac Type Severity Reaction Status Date / Time No Known Allergies Allergy Verified 06/01/15 14:16 - Medications Medications: Current Medications Haloperidol (Haldol) 2 mg PO TID PRN PRN Reason: Agitation Last Admin: 07/02/17 02:14 Dose: 2 mg Lorazepam (Ativan) 1 mg IVP Q8 PRN PRN Reason: Agitation Last Admin: 07/02/17 07:04 Dose: 1 mg Nicotine (Nicoderm Cq) 1 patch TD DAILY HORACIO Last Admin: 07/02/17 08:56 Dose: 1 patch Results - Vital Signs Recent Vital Signs: Last Vital Signs Temp 98.1 F 07/02/17 08:46 Pulse 87 07/02/17 09:00 Resp 18 07/02/17 08:46 BP 107/76 07/02/17 08:46 Pulse Ox 100 07/02/17 08:46 - Labs Result Diagrams: 07/01/17 05:55 07/02/17 04:20 Labs: Laboratory Results - last 24 hr 07/01/17 07/01/17 07/02/17 05:55 05:55 04:20 Sodium 139 Potassium 4.1 Chloride 92 L Carbon Dioxide 27 Anion Gap 24 H BUN 8 Creatinine 0.6 L Est GFR ( Amer) > 60 Est GFR (Non-Af Amer) > 60 Random Glucose 100 Calcium 9.3 Total Bilirubin 0.5 AST 23 ALT 35 Alkaline Phosphatase 86 Total Protein 7.2 Albumin 4.1 Globulin 3.1 Albumin/Globulin Ratio 1.3 Thyroxine (T4) 9.80 TSH 3rd Generation 1.79 FSH 3rd Generation 3.3 Luteinizing Hormone 5.1 Prolactin 46.9 H Cortisol AM Sample 9.6
--- NOTE | 2017-07-02 12:36 | CP.PCM.DIS ---
Provider - Provider Date of Admission: 06/29/17 19:35 Attending physician: Osman Osorio MD Time Spent in preparation of Discharge (in minutes): 30 Diagnosis - Discharge Diagnosis (1) Acute psychosis Status: Acute Hospital Course - Lab Results Lab Results: Most Recent Lab Values WBC 7.8 K/uL (4.8-10.8) 07/01/17 05:55 RBC 4.45 Mil/uL (3.80-5.20) 07/01/17 05:55 Hgb 13.7 g/dL (12.0-16.0) 07/01/17 05:55 Hct 40.9 % (34.0-47.0) 07/01/17 05:55 MCV 91.8 fl (81.0-99.0) 07/01/17 05:55 MCH 30.9 pg (27.0-31.0) 07/01/17 05:55 MCHC 33.6 g/dL (33.0-37.0) 07/01/17 05:55 RDW 13.1 % (11.5-14.5) 07/01/17 05:55 Plt Count 211 K/uL (130-400) 07/01/17 05:55 MPV 9.3 fl (7.2-11.7) 07/01/17 05:55 Neut % (Auto) 48.7 % (50.0-75.0) L 07/01/17 05:55 Lymph % (Auto) 40.1 % (20.0-40.0) H 07/01/17 05:55 [place] % (Auto) 9.3 % (0.0-10.0) 07/01/17 05:55 Eos % (Auto) 1.3 % (0.0-4.0) 07/01/17 05:55 Baso % (Auto) 0.6 % (0.0-2.0) 07/01/17 05:55 Neut # (Auto) 3.8 K/uL (1.8-7.0) 07/01/17 05:55 Lymph # (Auto) 3.1 K/uL (1.0-4.3) 07/01/17 05:55 [place] # (Auto) 0.7 K/uL (0.0-0.8) 07/01/17 05:55 Eos # (Auto) 0.1 K/uL (0.0-0.7) 07/01/17 05:55 Baso # (Auto) 0.0 K/uL (0.0-0.2) 07/01/17 05:55 Sodium 139 mmol/l (132-148) 07/02/17 04:20 Potassium 4.1 MMOL/L (3.6-5.0) 07/02/17 04:20 Chloride 92 mmol/L (98-107) L 07/02/17 04:20 Carbon Dioxide 27 mmol/L (22-30) 07/02/17 04:20 Anion Gap 24 (10-20) H 07/02/17 04:20 BUN 8 mg/dl (7-17) 07/02/17 04:20 Creatinine 0.6 mg/dl (0.7-1.2) L 07/02/17 04:20 Est GFR ( Amer) > 60 07/02/17 04:20 Est GFR (Non-Af Amer) > 60 07/02/17 04:20 POC Glucose (mg/dL) 75 mg/dL (65-110) 06/29/17 16:57 Random Glucose 100 mg/dL (65-105) 07/02/17 04:20 Calcium 9.3 mg/dL (8.4-10.2) 07/02/17 04:20 Total Bilirubin 0.5 mg/dl (0.2-1.3) 07/02/17 04:20 AST 23 U/L (14-36) 07/02/17 04:20 ALT 35 U/L (9-52) 07/02/17 04:20 Alkaline Phosphatase 86 U/L (38-126) 07/02/17 04:20 Total Protein 7.2 G/DL (6.3-8.2) 07/02/17 04:20 Albumin 4.1 g/dL (3.5-5.0) 07/02/17 04:20 Globulin 3.1 gm/dL (2.2-3.9) 07/02/17 04:20 Albumin/Globulin Ratio 1.3 (1.0-2.1) 07/02/17 04:20 Thyroxine (T4) 9.80 ug/dl (5.5-11.0) 07/02/17 04:20 Total T3 1.28 nmol/L (1.49-2.60) L 07/01/17 05:55 TSH 3rd Generation 1.79 mIU/ML (0.46-4.68) 07/02/17 04:20 FSH 3rd Generation 3.3 mIU/mL 07/02/17 04:20 Luteinizing Hormone 5.1 mIU/ml 07/02/17 04:20 Prolactin 46.9 ng/mL (3.0-18.9) H 07/01/17 05:55 Cortisol AM Sample 9.6 ug/dL (4.46-22.7) 07/01/17 05:55 Urine Color Yellow (YELLOW) 06/29/17 08:50 Urine Clarity Clear (Clear) 06/29/17 08:50 Urine pH 6.0 (5.0-8.0) 06/29/17 08:50 Ur Specific [place] 1.005 (1.003-1.030) 06/29/17 08:50 Urine Protein Negative mg/dL (NEGATIVE) 06/29/17 08:50 Urine Glucose (UA) Neg mg/dL (Normal) 06/29/17 08:50 Urine Ketones Negative mg/dL (NEGATIVE) 06/29/17 08:50 Urine Blood Small (NEGATIVE) 06/29/17 08:50 Urine Nitrate Negative (NEGATIVE) 06/29/17 08:50 Urine Bilirubin Negative (NEGATIVE) 06/29/17 08:50 Urine Urobilinogen 0.2-1.0 mg/dL (0.2-1.0) 06/29/17 08:50 Ur Leukocyte Esterase Neg Serge/uL (Negative) 06/29/17 08:50 Urine RBC (Auto) 8 /hpf (0-3) H 06/29/17 08:50 Urine Microscopic WBC < 1 /hpf (0-5) 06/29/17 08:50 Urine Bacteria Few (<OCC) H 06/29/17 08:50 Urine Opiates Screen Negative (NEGATIVE) 06/29/17 17:10 Urine Methadone Screen Negative (NEGATIVE) 06/29/17 17:10 Ur Barbiturates Screen Negative (NEGATIVE) 06/29/17 17:10 Ur Phencyclidine Scrn Negative (NEGATIVE) 06/29/17 17:10 Ur Amphetamines Screen Positive (NEGATIVE) H 06/29/17 17:10 U Benzodiazepines Scrn Negative (NEGATIVE) 06/29/17 17:10 U Oth Cocaine Metabols Negative (NEGATIVE) 06/29/17 17:10 U Cannabinoids Screen Positive (NEGATIVE) H 06/29/17 17:10 Alcohol, Quantitative < 10 mg/dl (0-10) 06/29/17 18:19 - Hospital Course Hospital Course: 36 YO F who was admitted for behavioral changes, hallucinations, and delusions was admitted and had an MRI/CT done. Microadenoma was noted which did not warrant surgical intervention. Patient's symptoms have resolved, she is cleared by Neurology and psych. Advised to f/u outpatient. Discharge Exam - Head Exam Head Exam: NORMAL INSPECTION - Eye Exam Eye Exam: Normal appearance - ENT Exam ENT Exam: Mucous Membranes Moist - Respiratory Exam Respiratory Exam: Clear to PA & Lateral, NORMAL BREATHING PATTERN. absent: Rales, Rhonchi, Wheezes, Respiratory Distress - Cardiovascular Exam Cardiovascular Exam: REGULAR RHYTHM, +S1, +S2 - Skin Skin Exam: Normal Color, Warm Discharge Plan - Follow Up Plan Condition: GOOD Disposition: HOME/ ROUTINE Additional Instructions: F/U with PMD and outpatient psych in one week after discharge. IF symptoms reoccur please return to ER. Referrals: Anjana Arellano MD [Medical Doctor] - Osman Osorio MD [Staff Provider] -
[2017-07-02 13:00] LABS: PROLACTIN 118.1 ng/mL (3.0-18.9)
--- NOTE | 2017-07-02 21:04 | PN ---
ENDOCRINOLOGY FOLLOWUP NOTE DATE: LOCATION: In room 410. SUBJECTIVE: This is a 36-year-old female with recent admission for behavioral disturbances and underlying ADHD with major depression and is now being followed closely for metabolic management. There was some incidental finding on CAT scan of a cerebellar mass lesion and question of a pituitary mass lesion as noted. Her MRI of the brain did not visualize any mass lesion in the pituitary area as noted; however, but the hormonal profile then showed a prolactin level of 46.9 yesterday and today a level of 118.1 which is quite elevated at this time. LABORATORY DATA: Chemistry showed a BUN of 8, sodium of 139, potassium of 4.1, chloride of 92, CO2 of 27, glucose of 100, and creatinine of 0.6. Her serum cortisol level is 20.3 with a TSH of 1.79 and a cortisol of 9.6 mcg/dL. Her LH is 5.1. Her FSH is 3.3. ASSESSMENT: Overt hyperprolactinemia and etiology has to be ascertained as to whether we are dealing with a pituitary adenoma, IVF prolactinoma which was then actually visualized on the MRI of the brain done yesterday. However with the recent overt psychosis and behavioral disturbances with psychotropic medications given, this can also cause a transient elevation of prolactin level as noted. PLAN: Plan of management as discussed with the nurse practitioner and the patient, would hold off any kind of hormonal intervention in terms of medical therapy or the initiation of bromocriptine medication and this will be held till a further complete and comprehensive hormonal profile will be repeated after 2 to 3 months post discharge when she is more clinically and psychologically stable. We will discuss with the primary physician regarding the need to repeat the prolactin level on the outpatient. If hyperprolactinemia persist then she will need to repeat MRI to fully visualize the pituitary gland area and may need hormonal medications as indicated. We will follow with you. Anjana Arellano MD
== END 2017-07-02 13:03 | disposition home or self-care (01) | DRG 644 ==
LOC: H.ER 15:15 → OBSVTOIN 19:35 → H.ERHOLD 19:35 → H.TEL 23:11
PROVIDERS: ADMIT Family Medicine; ATTEND Family Medicine
DX: D35.2 Benign neoplasm of pituitary gland (principal); E22.1 Hyperprolactinemia; F23 Brief psychotic disorder; G93.89 Other specified disorders of brain; F25.9 Schizoaffective disorder, unspecified; F41.1 Generalized anxiety disorder; F90.9 Attention-deficit hyperactivity disorder, unspecified type; F98.8 Other specified behavioral and emotional disorders with onset usually occurring in childhood and adolescence; F17.200 Nicotine dependence, unspecified, uncomplicated